=== PATIENT | male | born 1965 | race Caucasian/White ===

== ENCOUNTER 2024-10-19 10:55 | Emergency (ER) | payer BC, SELFPAY ==
[2024-10-19 11:02] VITALS: BP 138/85; PULSE 79; RESP 16; TEMP 36.6; O2SAT 99
--- NOTE | 2024-10-19 11:34 | ED_ITS ---
HPI - Skin/Abscess/Foreign Bdy General Chief complaint: Skin/Abscess/Foreign Body Stated complaint: RASH Time Seen by Provider: 10/19/24 11:34 Source: patient Mode of arrival: ambulatory Limitations: no limitations History of Present Illness HPI narrative: 59 yo M presents with c/o redness, swelling to L lower leg for the past 2 to 3 days. Has had poison sumac to L lower leg for approx 2 months. Has had poison vargas mac in the past has has taken him this long for rash to heal in the past. Reports intermittent itching, has also been placing L leg under hot water because it makes rash feel better . Concerned for infection or burn to L lower extremity. All systems reviewed and negative except as noted above. Related Data Home Medications ?Medication ?Instructions ?Recorded ?Confirmed ?Last Taken ?Type amlodipine 5 mg tablet 5 mg PO DAILY 10/19/24 10/19/24 Unknown History aspirin 81 mg capsule 81 mg PO DAILY 10/19/24 10/19/24 Unknown History glucosamine sulfate 500 mg tablet 500 mg PO BID 10/19/24 10/19/24 Unknown History (Glucosamine) lisinopril 10 1 tablet PO DAILY 10/19/24 10/19/24 Unknown History mg-hydrochlorothiazide 12.5 mg tablet niacin 500 mg tablet 500 mg PO DAILY 10/19/24 10/19/24 Unknown History omega-3 fatty acids-fish oil 360 1 cap PO BID 10/19/24 10/19/24 Unknown History mg-1,200 mg capsule (Fish Oil) potassium 99 mg tablet 99 mg PO DAILY 10/19/24 10/19/24 Unknown History semaglutide 2 mg/dose (8 mg/3 mL) 2 mg subcut WEEKLY 10/19/24 10/19/24 Unknown History subcutaneous pen injector (Ozempic) simvastatin 10 mg tablet 10 mg PO QPM 10/19/24 10/19/24 Unknown History vitamin B complex (Vitamins B 1 cap PO DAILY 10/19/24 10/19/24 Unknown History Complex capsule) zinc 50 mg tablet 50 mg PO DAILY 10/19/24 10/19/24 Unknown History Review of Systems Review of Systems: CONSTITUTIONAL: Denies fever, chills, or sweats. EYES: Denies visual changes, redness, or discharge. ENT: Denies rhinorrhea, congestion, sore throat, or otalgia. CARDIOVASCULAR: Denies chest pain, palpitations, or edema. RESPIRATORY: Denies cough or dyspnea. GASTROINTESTINAL: Denies abdominal pain, nausea, vomiting, or diarrhea. GENITOURINARY: Denies dysuria or hematuria. SKIN: Reports poison sumac rash to left lower extremity for 2 months with erythema, drainage, swelling the past 2-3 days. MUSCULOSKELETAL: Denies back pain, joint pain, or myalgia. NEUROLOGIC: Denies headache, numbness, or weakness. PSYCHIATRIC: Denies anxiety or depression. All other systems reviewed are negative, except as documented in HPI. PMFSH Comments At time of signature, agree with nursing past medical, surgical, social and family history. There is no relevant family history pertinent to the presenting complaint. Exam Narrative: GENERAL: This is a well-nourished, well-developed patient, in no apparent distress. HEAD: normocephalic, atraumatic. EYES: PERRL. Sclera clear/white. Vision is grossly intact. EARS: External ears normal NOSE: External nose normal NECK: Neck supple, non-tender without lymphadenopathy, masses or thyromegaly. CARDIOVASCULAR: Regular rate and rhythm without murmurs, gallops, or rubs. RESPIRATORY: Clear to auscultation. Breath sounds equal bilaterally. No wheezes, rales, or rhonchi. SKIN: warm, Dry, , good texture and turgor. poison sumac lesions to L lower extremity, 2x3 and 3x4 crusting and drainage. erythema and dry, scaly, peeling skin with mild warmth and swelling approx. 11 x 14 NEURO: awake, alert, and oriented to person, place and time. There were no obvious focal neurologic abnormalities. EXTREMITIES: No joint tenderness, effusion, or edema noted. Course Course Level of Care: Express Care Visit Vital Signs Vital signs: Vital Signs Temperature 36.6 C 10/19/24 11:02 Pulse Rate 79 10/19/24 11:02 Respiratory Rate 16 10/19/24 11:02 Blood Pressure 138/85 10/19/24 11:02 Pulse Oximetry 99 10/19/24 11:02 Oxygen Delivery Room Air 10/19/24 11:02 Temperature 36.6 C 10/19/24 11:02 Pulse Rate 79 10/19/24 11:02 Respiratory Rate 16 10/19/24 11:02 Blood Pressure 138/85 10/19/24 11:02 Pulse Oximetry 99 10/19/24 11:02 Oxygen Delivery Room Air 10/19/24 11:02 Reviewed MDM - Skin/Abscess/Foreign Bdy MDM Narrative Medical decision making narrative: Will treat patient for cellulitis with cephalexin. Recommend Aquaphor or Va seline to dry scaly skin. Patient is well-appearing, nontoxic. Patient is aware of diagnosis, understands and agrees to treatment plan. Anticipatory guidance given. Patient agrees to follow-up as directed and is aware of reasons to seek care at the emergency department. Portions of this record may have been created with voice recognition software Discharge Plan Discharge Clinical Impression: Cellulitis of left anterior lower leg Patient Disposition: Home, Self-Care Condition: Stable Instructions: Antibiotic Form, Cellulitis (ED) Additional Instructions: Take antibiotic as prescribed until gone. Take tylenol every 6 to 8 hours as needed for pain. Apply vaseline or aquaphor twice a day. Keep clean. See your doctor if not improving. Patient Language: Maori Prescriptions: New cephalexin 500 mg capsule 500 mg PO Q6H 7 Days Qty: 28 0RF No Action amlodipine 5 mg tablet 5 mg PO DAILY lisinopril-hydrochlorothiazide 10-12.5 mg tablet 1 tablet PO DAILY Ozempic 2 mg/dose (8 mg/3 mL) pen injector 2 mg SUBCUT WEEKLY simvastatin 10 mg tablet 10 mg PO QPM omega-3 fatty acids-fish oil [Fish Oil] 360-1,200 mg capsule 1 cap PO BID aspirin 81 mg capsule 81 mg PO DAILY niacin 500 mg tablet 500 mg PO DAILY glucosamine sulfate [Glucosamine] 500 mg tablet 500 mg PO BID Rx Instructions: administer with meals zinc 50 mg tablet 50 mg PO DAILY potassium 99 mg tablet 99 mg PO DAILY vitamin B complex [Vitamins B Complex] Capsule 1 cap PO DAILY Follow-up/Referrals: Peewee,MD Kelsey [Primary Care Provider] - Time of Disposition: 11:47
== END 2024-10-19 11:54 | disposition home or self-care (01) ==
PROVIDERS: Emergency Provider Nurse Practitioner Family; PCP Family Medicine
DX: L03.116 Cellulitis of left lower limb (principal); I10 Essential (primary) hypertension; E11.9 Type 2 diabetes mellitus without complications; Z79.84 Long term (current) use of oral hypoglycemic drugs; E78.00 Pure hypercholesterolemia, unspecified; Z79.82 Long term (current) use of aspirin
CPT/HCPCS: 99203; G0463